=== PATIENT | female | born 1985 | race Caucasian/White ===

== ENCOUNTER 2018-11-18 13:40 | Emergency (ER) | payer OTHER ==
[~2018-11-18] VITALS: Ht 155 cm; Wt 51.0 kg
[2018-11-18 13:45] VITALS: BP 126/60; PULSE 89; TEMP 100.3
[2018-11-18 14:14] LABS: STREP SCREEN NEGATIVE
[2018-11-18] MEDS ORDERED: AMOXICILLIN 50500 MG PO (14:47)
== END 2018-11-18 15:45 | disposition home or self-care (01) ==
LOC: COL.ER 13:40
PROVIDERS: Physician Assistant
DX: J02.9 Acute pharyngitis, unspecified (principal)

== ENCOUNTER 2019-04-22 18:05 | Emergency (ER) | payer OTHER ==
[~2019-04-22] VITALS: Ht 152 cm; Wt 55.0 kg
[~2019-04-22 18:05] MED LIST: AMOXICILLIN 50500 MG PO
[2019-04-22 18:33] VITALS: BP 113/74; TEMP 98.7
[2019-04-22] MEDS ORDERED: FLEXERIL 1010 MG/TAB PO (20:26)
[2019-04-22 20:30] VITALS: PULSE 72
[2019-04-23] MEDS ORDERED: AMOXICILLIN 8751 TAB PO (03:57)
== END 2019-04-22 20:30 | disposition home or self-care (01) ==
LOC: COL.ER 18:05
DX: M26.602 Left temporomandibular joint disorder, unspecified (principal)
CPT/HCPCS: J1885

== ENCOUNTER 2019-04-23 00:35 | Emergency (ER) | payer OTHER ==
[~2019-04-23] VITALS: Ht 152 cm; Wt 55.0 kg
[~2019-04-23 00:35] MED LIST changes: +FLEXERIL 1010 MG/TAB PO
[2019-04-23 00:47] VITALS: TEMP 98.3
[2019-04-23] MEDS ORDERED: AMOXICILLIN 8751 TAB PO (03:57)
[2019-04-23 04:16] VITALS: BP 139/89; PULSE 45
== END 2019-04-23 04:47 | disposition home or self-care (01) ==
LOC: COL.ER 00:35
PROVIDERS: Physician Assistant
DX: R51 Headache (principal); K01.1 Impacted teeth
CPT/HCPCS: J1200; J1885; J2270; J2765; J7030